=== PATIENT | male | born 1975 | race Two or more races ===

== ENCOUNTER 2024-08-27 09:54 | Outpatient (AMB) | payer MEDICAID, SELFPAY ==
[2024-08-27 10:13] VITALS: BP 128/83; PULSE 80; RESP 18; TEMP 36; O2SAT 98; BMI 28.8
--- NOTE | 2024-08-27 10:13 | ORTHONT_ITS ---
Vital signs 08/27/24 10:13 Height 1.68 m Height Method Stated Weight 80.824 kg Weight Measurement Method Standing Scale BMI 28.8 BP 128/83 Blood Pressure Source Automatic Cuff Blood Pressure Location Left Upper Arm Position Sitting Respiration 18 Pulse 80 Pulse Source Monitor Temp 96.8 F Temp Source Temporal Artery Scan Pulse Oximetry (%) 98 Oxygen Delivery Method Room Air Med/Allergies Allergies & Medications Allergies CEPHALEXIN Allergy (Uncoded 08/27/24 10:18) Medication Reconciliation lisinopril 10 mg tablet 10 mg PO QDAY 08/27/24 [History Confirmed 08/27/24] omeprazole 20 mg capsule,delayed release 20 mg PO QDAY 08/27/24 [History Confirmed 08/27/24] Subjective Visit Visit for: new patient and knee Immunization / Flu Flu Vaccine in the Last 12 Months: No Flu Vaccine Exclusion Criteria: No Exclusion Criteria History of Present Illness Chief complaint: Right knee pain Patient is a 48-year-old male with right knee pain. The pain is primarily medial and started after a fall 6 months ago. He has tried a knee brace and 12 sessions of physical therapy. He reports mechanical symptoms and feeling like his knee gets stuck at times. He has not had any injections. 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 Exam Exam Patient is in no acute distress and is cooperative with the examination today. Breathing is nonlabored. Patient has a normal mood and affect. Bilateral extremities were evaluated and demonstrates sensation intact to light touch. Palpable pedal pulses are present. No significant edema is present. Bilateral hips were examined. The patient has no pain with log roll of the hips. Internal rotation to 30 degrees and external rotation to 30 degrees is painless. Negative FADIR. Left knee was examined today. The left knee is in reasonable alignment. Range of motion from 0-120 degrees. Knee is stable to varus and valgus as well as AP translation with <5mm. Patient has a negative McMurrays. There is no pain with patellofemoral compression and no crepitus noted. The knee is nontender to palpation. The right knee was also examined. The right knee is in Neutralalignment. Range of motion from [0-115] degrees. Knee is stable to varus and valgus as well as AP translation with <5mm. Patient has a Positive McMurrays. There is [no] pain with patellofemoral compression and [no] crepitus noted. The knee is [tender] to palpation [medially] The x-rays are reportedly normal. I do not have them to view today Assessment and Plan Problem List (1) Right knee meniscal tear: Status: Acute Plan: Patient is a 48-year-old male with Either meniscal or MCL tear. We recommend an MRI to better evaluate this. He has already tried therapy extensively and reports continued pain We will see the patient back in approximately a monthAfter his MRI is done. He does have mechanical symptoms. We also gave him a knee brace Office Procedures GNS Level of Care Nursing/Assessment Patient Status: Initial/New Patient Nursing Assessment/Reassesment: Medication Reconciliation, Update PMH in EMR and Vital Signs Coordination of Care: Complex Care and Chronic Disease 1-5, Education Complex Pt/Fam, Consent,records obtained, informed consent, 1 Ins Authorization, Lab and Imaging orders, Results/Orders obtained and Staff clarify orders New Patient Charge New Patient Point Assignment: 1124 New Patient Point Charge: BUFFER INFLATED PAD Level 4 (9922-1951) Past Medical History Past Medical History Have you ever been diagnosed with any of the following: Respiratory Problems Smoking: No Smoking Exposure: No
== END 2024-08-27 10:21 | disposition home or self-care (01) ==
LOC: HODSRG 09:54
PROVIDERS: Supervising Provider Orthopaedic Surgery Adult Reconstructive Orthopaedic Surgery; Visit Provider Orthopaedic Surgery Adult Reconstructive Orthopaedic Surgery
DX: S83.206D Unspecified tear of unspecified meniscus, current injury, right knee, subsequent encounter (principal); W19.XXXD Unspecified fall, subsequent encounter
CPT/HCPCS: 99204; G0463

== ENCOUNTER → 2024-09-24 | Outpatient (CLI) | payer MEDICAID, SELFPAY ==
--- NOTE | 2024-09-24 13:30 | XR_ITS ---
Exam: MRI knee without contrast, right complete Date and time of exam: September 24, 2024 1340 hours INDICATIONS: Knee injury April 2024 with medial knee pain and stiffness Technique: Multiple axial, coronal, and sagittal sections on the knee have been obtained. T2-Weighted sagittal, fat-suppressed images, TR 3,500, TE 62, T2 weighted coronal fat-saturated images, TR 3,500, TE 62 Proton density sagittal sections, TR 1800, TE 31. T-1 weighted coronal images, TR 524, TE 13.0 Findings: Medial meniscus anterior horn intact. Medial meniscus, body complex tears. Posterior horn medial meniscus horizontal linear tear communicating intermargin. Lateral meniscus anterior horn is intact Lateral meniscus, body is intact Posterior horn lateral meniscus is intact Anterior cruciate ligament moderate sprain Posterior cruciate ligament appears intact. Knee effusion is moderate. Quadriceps and patellar tendons appear intact. There is no evidence of tendinosis. Inflammatory change or fracture of Hoffa's fat pad is not seen. Medial patellar facet demonstrates mild thinning. Lateral patellar facet cartilage demonstrates mild thinning. Trochlear cartilage demonstrates mild thinning. Marrow signal adequate. Medial collateral ligament moderate sprain No meniscocapsular separation is seen. Illiotibial band and fibular collateral ligament are intact. Biceps femoris tendons appear intact. Medial femoral condylar articular cartilage demonstrates moderate thinning. Lateral femoral condylar articular cartilage demonstratesmoderate thinning. Tibial plateau cartilage demonstrates moderate thinning. Impression: Tears of the body and posterior horn medial meniscus Moderate sprain anterior cruciate ligament Moderate strain medial collateral ligament
== END | disposition home or self-care (01) ==
PROVIDERS: PCP Nurse Practitioner Family; Referring Provider Orthopaedic Surgery Adult Reconstructive Orthopaedic Surgery; Visit Provider Orthopaedic Surgery Adult Reconstructive Orthopaedic Surgery
DX: S83.241A Other tear of medial meniscus, current injury, right knee, initial encounter (principal); S83.511A Sprain of anterior cruciate ligament of right knee, initial encounter; X58.XXXA Exposure to other specified factors, initial encounter
CPT/HCPCS: 73721

== ENCOUNTER 2024-10-11 11:24 | Outpatient (AMB) | payer MEDICAID, SELFPAY ==
--- NOTE | 2024-10-11 11:25 | PD.ORTHTELE ---
Med/Allergies Allergies & Medications Allergies CEPHALEXIN Allergy (Uncoded 10/11/24 11:25) Medication Reconciliation lisinopril 10 mg tablet 10 mg PO QDAY 08/27/24 [History Confirmed 10/11/24] omeprazole 20 mg capsule,delayed release 20 mg PO QDAY 08/27/24 [History Confirmed 10/11/24] Subjective Visit Visit for: follow up visit and MRI Immunization / Flu Flu Vaccine in the Last 12 Months: No Flu Vaccine Exclusion Criteria: No Exclusion Criteria History of Present Illness Chief complaint: TELEMED FOR MRI RESULTS Patient states he has tried physical therapy and reports knee injections havent helped Pain Pain level (0-10): 5 Pain duration: ALL DAY Pain location: anterior Pain quality: sharp, dull and aching Pain timing: increases with activity Ambulatory data Ambulatory device: none Treatments Improvement with previous injections: No Number of Physical Therapy sessions: 3 Improvement with PT: No Improvement with NSAIDS: no Review of Systems Review of Systems: All systems negative unless otherwise noted in HPI. 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
== END 2024-10-11 11:37 | disposition home or self-care (01) ==
LOC: HODSRG 11:24
PROVIDERS: PCP Nurse Practitioner Family; Referring Provider Nurse Practitioner Family; Supervising Provider Orthopaedic Surgery Adult Reconstructive Orthopaedic Surgery; Visit Provider Orthopaedic Surgery Adult Reconstructive Orthopaedic Surgery
DX: Z71.2 Person consulting for explanation of examination or test findings (principal)
CPT/HCPCS: 99212; G0463

== ENCOUNTER 2024-11-28 13:32 | Outpatient (AMB) | payer MEDICAID, SELFPAY ==
[2024-11-28 14:03] VITALS: BP 107/73; PULSE 84; RESP 18; TEMP 36.6; O2SAT 96; BMI 28.3
--- NOTE | 2024-11-28 14:03 | PD.ORTHCLVIS ---
Vital signs 11/28/24 14:03 Height 1.68 m Height Method Stated Weight 80.031 kg Weight Measurement Method Standing Scale BMI 28.3 BP 107/73 Blood Pressure Source Automatic Cuff Blood Pressure Location Right Upper Arm Position Sitting Respiration 18 Pulse 84 Pulse Source Monitor Temp 97.8 F Temp Source Temporal Artery Scan Pulse Oximetry (%) 96 Oxygen Delivery Method Room Air Med/Allergies Allergies & Medications Allergies CEPHALEXIN Allergy (Uncoded 11/28/24 14:08) Medication Reconciliation lisinopril 10 mg tablet 10 mg PO QDAY 08/27/24 [History Confirmed 11/28/24] omeprazole 20 mg capsule,delayed release 20 mg PO QDAY 08/27/24 [History Confirmed 11/28/24] Exam Exam Patient is in no acute distress and is cooperative with the examination today. Breathing is nonlabored. Patient has a normal mood and affect. Bilateral extremities were evaluated and demonstrates sensation intact to light touch. Palpable pedal pulses are present. No significant edema is present. Bilateral hips were examined. The patient has no pain with log roll of the hips. Internal rotation to 30 degrees and external rotation to 30 degrees is painless. Negative FADIR. Left knee was examined today. The left knee is in reasonable alignment. Range of motion from 0-120 degrees. Knee is stable to varus and valgus as well as AP translation with <5mm. Patient has a negative McMurrays. There is no pain with patellofemoral compression and no crepitus noted. The knee is nontender to palpation. The right knee was also examined. The right knee is in Neutralalignment. Range of motion from [0-115] degrees. Knee is stable to varus and valgus as well as AP translation with <5mm. Patient has a Positive McMurrays. There is [no] pain with patellofemoral compression and [no] crepitus noted. The knee is [tender] to palpation [medially] The x-rays are reportedly normal. I do not have them to view today Patient has an MRI which demonstrates a posterior horn the medial meniscus tear Assessment and Plan Problem List (1) Right knee meniscal tear: Status: Acute Plan: Patient is a 49-year-old male with Either meniscal or MCL tear. We obtained an MRI which demonstrates a posterior horn the medial meniscus tear. We discussed nonoperative options was operative options. He would like to try conservative treatment including an injection for now which I discussed is reasonable. Recommend knee cortisone injection as patient would like to proceed with conservative treatment at this time. The risks and benefits of the procedure were reviewed with the patient and patient gave verbal consent to continue with the procedure. Procedure: performed by Dr. Hernandez Using sterile technique the Right knee was thoroughly prepped with alcohol, and approximately 1 cc of Kenalog 40 mg/mL and 4 cc of 1% lidocaine was injected without resistance into the medial tibial femoral joint space. The patient tolerated the procedure. Office Procedures GNS Level of Care Nursing/Assessment Patient Status: Established Patient Nursing Assessment/Reassesment: Medication Reconciliation, Update PMH in EMR and Vital Signs Coordination of Care: Complex Care and Chronic Disease 1-5, Education Complex Pt/Fam, Consent,records obtained, informed consent, Results/Orders obtained and Staff clarify orders Established Patient Charge Established Patient Point Assignment: 95 Surgical Proc/IM SQ injection Major Surgical Procedure: Yes (RIGHT KNEE INJECTION ) Medication Given Medication Given Medication Given: Yes Documented Dose Given: 4 Route: Infiitration Medication Given Medication Given Medication Given: Yes Documented Dose Given: 1 Office Meds Xylocaine 10 mg/mL (1 %) injection solution Performing Provider: Uriah Hernandez MD Performing Location: [facility] Administered by: Uriah Hernandez MD on 11/28/24 14:10 Dose Route Admin Location Dispensed Lot Number Expiration Date [facility] Continuous Wave Operator 20 mL Infiltration 20 mL [id number] [facility] triamcinolone acetonide 40 mg/mL suspension for injection Performing Provider: Uriah Hernandez MD Performing Location: [facility] Administered by: Uriah Hernandez MD on 11/28/24 14:10 Dose Route Admin Location Dispensed Lot Number Expiration Date [facility] Continuous Wave Operator 40 mg intra-articular RIGHT KNEE 1 mL [id number] 02/13/26 4769-5705-73 [facility] [place] Intake Visit Data Collection New Patient or Established: Established Patient (seen at [facility] within 3 years) Reason for Visit:: RIGHT KNEE INJECTION Seen by Clinical Staff ONLY (RN/MA): No Verbal consent obtained for Telemed visit?: No Top Stitcher Required: No PCP or OBGYN visit in last 3 months: Yes Hx Now: No Do You Feel Safe at Home: Yes Authorities Contacted: N/A Questionairres Past Medical History Past Medical History Have you ever been diagnosed with any of the following: Respiratory Problems Smoking: No Smoking Exposure: No Subjective Visit Visit for: follow up visit, knee and injections Immunization / Flu Flu Vaccine in the Last 12 Months: Yes Flu Vaccine Exclusion Criteria: No Exclusion Criteria and Already Received History of Present Illness Chief complaint: Right knee Patient is a pleasant 41-year-old male with right knee pain and a posterior horn medial meniscus tear. He is tender to palpation medially. He has tried anti-inflammatories only. 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 The pain has been ongoing for about a year at this point. He hsa tried physical therapy. He has also tried a knee brace Pain Pain level (0-10): 4 Pain duration: ALL DAY Pain location: inside (medial), outside (lateral) and anterior Pain quality: sharp, dull and aching Pain timing: increases with activity Associated signs & symptoms: numbness, weakness and stiffness Ambulatory data Ambulatory device: none Treatments Improvement with previous injections: No Improvement with PT: No Improvement with NSAIDS: n/a Review of Systems Review of Systems: All systems negative unless otherwise noted in HPI.
== END 2024-11-28 14:27 | disposition home or self-care (01) ==
LOC: HODSRG 13:32
PROVIDERS: PCP Nurse Practitioner Family; Referring Provider Nurse Practitioner Family; Supervising Provider Orthopaedic Surgery Adult Reconstructive Orthopaedic Surgery; Visit Provider Orthopaedic Surgery Adult Reconstructive Orthopaedic Surgery
DX: S83.241D Other tear of medial meniscus, current injury, right knee, subsequent encounter (principal); X58.XXXD Exposure to other specified factors, subsequent encounter; M25.561 Pain in right knee
CPT/HCPCS: 20610; 99213; J3301; J3490; G0463